=== PATIENT | male | born 1945 | race Caucasian/White ===

== ENCOUNTER 2021-12-31 10:28 | Outpatient (CLI) | payer MEDICARE ==
[~2021-12-31 10:28] MED LIST: AMLO10TA PO; ATOR40TA71 PO; CHOL10002 PO; DOCU-28 PO
== END 2021-12-31 23:59 | disposition home or self-care (01) ==
LOC: CARD DIAG 10:28
PROVIDERS: ATTEND Internal Medicine Cardiovascular Disease
DX: I08.8 Other rheumatic multiple valve diseases (principal)
CPT/HCPCS: 93306